=== PATIENT | female | born 1980 | race Caucasian/White ===

== ENCOUNTER 2016-07-09 02:32 | Emergency (ER) | payer SELFPAY ==
[~2016-07-09 02:32] MED LIST: CIPR500T4 PO; HYDR-762 PO; ONDA4TAB35 PO
== END 2016-07-09 03:12 | disposition left against medical advice (07) ==
LOC: E/R 02:32
DX: Z53.21 Procedure and treatment not carried out due to patient leaving prior to being seen by health care provider (principal)